=== PATIENT | male | born 1965 | race Caucasian/White ===

== ENCOUNTER 2019-06-10 10:26 | Observation (INO) ==
[2019-06-10] MEDS ORDERED: NS 1,000 ML IV PRN (11:07)
[2019-06-10 11:27] LABS: BASO# 0.02 X1000 (0.0-0.2); BASO% 0.3 % (0.0-0.8); EOS% 7.3 % (0.0-10.0); HEMATOCRIT 45.7 % (42.0-52.0); HEMOGLOBIN 16.1 g/dL (14.0-18.0); IMM GRAN# 0.02 X1000 (0.0-0.04); IMM GRAN% 0.3 % (0.0-0.5); LYMPH# 2.48 X1000 (1.2-3.4); LYMPH% 36.4 % (20.5-51.1); MCH 29.3 PG (27-31); MCHC 35.2 g/dL (33-37); MCV 83.1 FL (81-99); MONO# 0.52 X1000 (0.11-0.59); MONO% 7.6 % (1.7-9.3); MPV 11.9 FL (7.4-10.4); NEUT# 3.28 X1000 (1.4-6.5); NEUT% 48.1 % (42.2-75.2); PLT 141 X1000 (130-400); RDW 13.1 % (11.5-14.5); WBC 6.82 X1000 (4.8-10.8)
--- NOTE | 2019-06-10 11:29 | Diag Imaging Result Doc PS360 ---
EXAM: CT HEAD W/O CONTRAST HISTORY: right arm clumpsy TECHNIQUE: CT brain without contrast COMPARISON: None. FINDINGS: No parenchymal hemorrhage. No epidural or subdural hematoma. No subarachnoid hemorrhage. No mass identified on this noncontrasted exam. No hydrocephalus. There is a hypodense area posteriorly in the left temporal occipital region. It is difficult to tell if this is encephalomalacia from a small old infarct or if this is a congenital variant with atrophy. No sinus opacification. IMPRESSION: 1.No hemorrhage 2.Possible small old left infarct with encephalomalacia versus a congenital variant. This exam was performed using automated exposure control, adjustment of mA or kV according to patient size, and/or use of iterative reconstruction technique. Electronically signed by Jose Hopkins 06/10/2019 11:26 AM
--- NOTE | 2019-06-10 11:45 | EKG Report ---
Test Performed on : 06/10/2019 11:37:10 AM Test Reason : CVA symptoms Blood Pressure : / mmHG Vent. Rate : 048 BPM Atrial Rate : 048 BPM P-R Int : 140 ms QRS Dur : 106 ms QT Int : 452 ms P-R-T Axes : 028 019 059 degrees QTc Int : 403 ms Sinus bradycardia. Nonspecific T wave abnormality Abnormal ECG When compared with ECG of 25-DEC-2009 14:53, No significant change was found Unconfirmed Result
[2019-06-10 11:53] LABS: INR 0.92; PROTIME 12.8 Seconds (11.0-16.0)
[2019-06-10 11:54] LABS: PTT 26.6 Seconds (22.3-41.8)
[2019-06-10 11:56] LABS: ALBUMIN 4.2 g/dL (3.5-5.0); CALCIUM 8.9 mg/dL (8.8-10.2); CREATININE 1.3 mg/dL (0.7-1.2); POTASSIUM 4.9 mmol/L (3.5-5.1); TOTAL BILIRUBIN 1.1 mg/dL (0.20-1.00); TOTAL PROTEIN 6.9 g/dL (6.3-8.3)
--- NOTE | 2019-06-10 12:35 | PROVIDER DOCUMENTATION ---
This chart was entered by Augusto Graham Scribe, acting as scribe for Nadeen Johnson MD. HPI-General Adult - General Chief Complaint: Extremity Pain Stated Complaint: arm numbness Time Seen by Provider: 06/10/19 11:03 Source: patient Allergies/Adverse Reactions: Patient Allergies Allergy/AdvReac Type Severity Reaction Status Date / Time No Known Allergies Allergy Verified 06/10/19 11:01 Home Medications: Home Medication List Medication Instructions Recorded Confirmed Last Taken Type Amlodipine Besylate 5 mg PO DAILY 06/10/19 06/10/19 06/10/19 History Bisoprolol Fumarate/Hctz 1 ea PO DAILY 06/10/19 06/10/19 06/10/19 History [Bisoprolol-Hctz 5-6.25 mg Tab] Lisinopril 20 mg PO DAILY 06/10/19 06/10/19 06/10/19 History - History of Present Illness -Gen Adult Nature of Presenting Problems: 54 yowm presents to ed cc right arm numbness and weakness with health care coordinator onset am. symptoms have improved pt has hx of cva with depicts pt on exam has clear speech no facial droop and ambles at baseline pt is nontoxic at appearances and just felt that he needed to be checked out Location of Pain/Injury: reports: upper extremity (rue numbness and weakness) Pain Radiation: reports: no radiation Quality of Pain: reports: other (numbness and weakness) Severity: reports: mild Onset/Duration: reports: this morning Timing: reports: improving, intermittent Context/Activities at Onset: reports: light activity Modifying Factors: improves with: nothing Associated Symptoms: reports: weakness (rue), other (numbness). denies: back /neck pain, chest pain, diaphoresis, dizziness, headaches, shortness of breath Similar Symptoms Previously?: Yes (hx of cva but these sx are mild ) Recently seen or treated by another doctor?: No Review of Systems - Adult - REVIEW OF SYSTEMS - ADULT Constitutional: reports: no symptoms reported Eyes: reports: no symptoms reported Ears, Nose, Mouth & Throat: reports: no symptoms reported Cardiovascular: denies: chest pain, palpitations, syncope Respiratory: denies: cough, shortness of breath Gastrointestinal: denies: abdominal pain, diarrhea, nausea, vomiting Genitourinary: reports: no symptoms reported Musculoskeletal: reports: see HPI, muscle weakness (rue right) Integumentary: reports: no symptoms reported Neurological: reports: numbness (rue right). denies: dizziness/vertigo, headache/migraines, paresthesia, seizure, slurred speech, syncope, tremors Psychiatric: reports: no symptoms reported Endocrine: reports: no symptoms reported Hematologic/Lymphatic: reports: no symptoms reported Allergic/Immunologic: reports: no symptoms reported All Other Systems: Reviewed and Negative Past History - Adult - PAST MEDICAL HISTORY-ADULT Review of Records: reports: Old Records Reviewed, Nursing Assessment Review, Medications Reviewed, Social history reviewed & non-contributory. Major Childhood Illnesses: reports: denies history Cardiovascular: reports: HTN Respiratory: reports: denies history Gastrointestinal: reports: denies history Genitourinary: reports: denies history Musculoskeletal: reports: denies history Neurological: reports: CVA, stroke deficits (right sided) Endocrine/Immune: reports: denies history Other Conditions: reports: denies history - PRIOR SURGERIES/PROCEDURES Surgical/Procedure History: reports: reviewed, not pertinent - IMMUNIZATION STATUS Childhood Immunizations: See Nurse Assessment Flu Vaccine: See Nurse Assessment - FAMILY HISTORY Family History: reviewed, not pertinent - SOCIAL HISTORY Smoking: denies Substance Use: denies Living Situation: family Physical Exam-General - PHYSICAL EXAM-ADULT Initial Vital Signs Reviewed: Yes (marilee 50 bp 90/52) - CONSTITUTIONAL General Appearance: appears well, alert, no apparent distress - EYES Eyes: PERRL/EOMI, pink conjunctivae - HEAD, EARS, NOSE, MOUTH & THROAT HENMT: moist mucous membranes - NECK Neck: full range of motion, normal inspection - RESPIRATORY Respiratory: chest non-tender, lungs clear, normal breath sounds - CARDIOVASCULAR Cardiovascular: normal peripheral pulses, bradycardia (50) - GASTROINTESTINAL (ABDOMEN) Abdominal Exam: non tender, soft - GENITOURINARY Male Genitalia: deferred Rectal Exam: deferred Hemoccult Exam: deferred - MUSCULOSKELETAL Back Exam: normal inspection, no CVA tenderness, no vertebral tenderness Extremity: normal range of motion, normal inspection, no calf tenderness, normal capillary refill, other (rue numbness weakness mild on exam and improving) - SKIN Integumentary: normal color, normal turgor, warm/dry - NEUROLOGIC Neurologic: grossly normal, motor weakness (mild), sensory deficit (resolved) - PSYCHIATRIC Psych/Mental Status: normal mood/affect, normal thought content, normal thought process, oriented x 3 Progress - PLAN OF CARE/RESULTS Progress/Plan/Lab Results: Vital Signs - 8 hr 06/10/19 10:29 Temperature 98.3 F Pulse Rate 50 L Respiratory Rate 14 Blood Pressure 90/52 O2 Sat by Pulse Oximetry 99 Orders Category Date Time Status Cardiac Monitoring DIRECTED Care 06/10/19 11:07 Active Finger Stick Blood Sugar (ED) DIRECTED Care 06/10/19 11:07 Active Saline Loc NOW Care 06/10/19 11:[address] HEAD W/O CONTRAST [CT] Stat Exams 06/10/19 11:06 Ordered CBC WITH ELECTRONIC DIFF [HEME] Stat Lab 06/10/19 11:07 Ordered COMPREHENSIVE METABOLIC PANEL [CHEM] Stat Lab 06/10/19 11:07 Uncollected PROTIME WITH INR [COAG] Stat Lab 06/10/19 11:07 Uncollected PTT [COAG] Stat Lab 06/10/19 11:07 Uncollected TROPONIN T Stat Lab 06/10/19 11:07 Ordered URINE DRUG SCREEN PL Stat Lab 06/10/19 11:07 Uncollected VITAMIN B12 Stat Lab 06/10/19 11:07 Uncollected 0.9% Sodium Chloride Inj [Ns] 1,000 ml Med 06/10/19 11:07 Ordered IV 500 mls/hr EKG [EKG] Stat Ther 06/10/19 11:07 Ordered Result Diagrams: 06/10/19 11:15 06/10/19 11:15 - REASSESSMENT Reassessment #1 Time Reassessed: 12:13 (pt is resting in bed) Status: unchanged - EKG 1 Time of EKG reading by physician:: 11:37 EKG Read and Signed by:: Nadeen Johnson EKG Interpretation (*Must complete 3 of following elements*): Abnormal Rate: 48 Rhythm: sinus marilee [place]: normal QRS: normal GA Interval: normal ST Wave: normal Comments: nonspecific t wave abnormality - CT/MRI 1 CT Study: Head Impression: See EMR Report (EXAM: CT HEAD W/O CONTRAST HISTORY: right arm clumpsy TECHNIQUE: CT brain without contrast COMPARISON: None. FINDINGS: No parenchymal hemorrhage. No epidural or subdural hematoma. No subarachnoid hemorrhage. No mass identified on this noncontrasted exam. No hydrocephalus. There is a hypodense area posteriorly in the left temporal occipital region. It is difficult to tell if this is encephalomalacia from a small old infarct or if this is a congenital variant with atrophy. No sinus opacification. IMPRESSION: 1.No hemorrhage 2.Possible small old left infarct with encephalomalacia versus a congenital variant. This exam was performed using automated exposure control, adjustment of mA or kV according to patient size, and/or use of iterative reconstruction technique. Electronically signed by Jose Hopkins 06/10/2019 11:26 AM 06/10/19 1126 Interpreting Physician: Jose Hopkins MD Dictated Date/Time: 06/10/19 1123 cc: Nadeen Johnson MD; Sierra Blanco MD) - CONSULTS/PCP/HOSPITALIST Notification #1 *Consult/PCP/Hospitalist*: hospitalist dr beal Time Discussed: 13:32 Consult Disposition: Will see in ED, Admit Departure - Departure Date of Disposition Decision: 06/10/19 Time of Disposition Decision: 12:35 DIAGNOSIS: Right arm weakness Disposition: ADMITTED INPATIENT 09 Certified Medical Emergency: Emergent Condition: Good Referrals and Follow-Ups: Sierra Blanco MD [Primary Care Provider] - - Critical Care Note This patient required my direct & personal management of CC.: No Attestation - Physician/ WILLIAM Attestation Patient care was provided by Advanced Practice Provider:: No The physician spent face to face time with patient:: Yes Advanced Practice Provider documentation review:: Supervising physician onsite and consulted in the evaluation and care of this patient. The physician did have a face to face encounter with the patient. This chart was documented by the indicated scribe, (Augusto Graham Scribe) and accurately reflects the services I performed and decisions made by me, Nadeen Johnson MD, as attested by the provider's signature.
[2019-06-10] MEDS ORDERED: ZOFRAN IV PRN (13:42)
[2019-06-10] MEDS ORDERED: TYLENOL PO PRN (13:42)
[2019-06-10] MEDS ORDERED: APRESOLINE IV PRN (13:42)
[2019-06-10 13:49] LABS: UR AMPHETAMINES QUAL NONE DETECTED (NONE DETECT); UR BARBITUATES QUAL NONE DETECTED (NONE DETECT); UR BENZODIAZEPIN QUAL NONE DETECTED (NONE DETECT); UR CANNABINOIDS QUAL NONE DETECTED (NONE DETECT); UR COCAINE QUAL NONE DETECTED (NONE DETECT); UR METHADONE QUAL NONE DETECTED (NONE DETECT); UR METHAMPHETAMINE QUAL NONE DETECTED (NONE DETECT); UR OPIATES QUAL NONE DETECTED (NONE DETECT); UR OXYCODONE QUAL NONE DETECTED (NONE DETECT); UR PCP QUAL NONE DETECTED (NONE DETECT); UR PROPOXYPHENE QUAL NONE DETECTED (NONE DETECT); UR TCA QUAL NONE DETECTED (NONE DETECT)
[2019-06-10] MEDS: PRINIVIL PO SCH (17:25)
--- NOTE | 2019-06-10 19:46 | HISTORY AND PHYSICAL ---
CHIEF COMPLAINT: Extremity pain. HISTORY OF PRESENT ILLNESS: The patient is a 54-year-old male who presented to the hospital, noting that his right arm has become weak and numb. 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 He notes that he does have a history of cerebrovascular accident. He denies any speech change, vision change. Denies any focalized weakness anywhere else. ALLERGIES: No drug allergies. MEDICATIONS: Amlodipine 5, bisoprolol 5.5/6.25 daily, lisinopril 20 daily. PAST MEDICAL HISTORY: History of stroke, hypertension. FAMILY HISTORY: Positive for hypertension. REVIEW OF SYSTEMS: The patient notes that he normally has no chronic weakness in his right upper extremity. He has had a stroke in the past, but all of his symptoms resolved. He denies any headaches, blurred vision or change in vision. Denies any focalized numbness, tingling or weakness in his extremities, other than the symptoms that began today. He denies any diarrhea, constipation, melena or hematochezia. Denies dysuria. No frequency or urgency. Denies skin rashes, weight loss or weight gain. SOCIAL HISTORY: The patient denies smoking, states that he takes his blood pressure medications. Usually it is elevated but not as high as it is today. Denies alcohol or other illicit substance use. PHYSICAL EXAMINATION: VITAL SIGNS: Reviewed. Temperature 98 degrees, pulse 50, respiratory 14. BP initially in the ER 90/52, but then elevated upon my arrival and was 180/102. Certainly expect that the initial blood pressure reading may have been inaccurate. HEENT: Normocephalic. NECK: Supple. CARDIOVASCULAR: Regular rate. No murmurs. CHEST: Clear, nonlabored. ABDOMEN: Soft, nondistended. EXTREMITIES: Moves all extremities, although he does have some focalized weakness and numbness in his right upper extremity. He has full use of his right lower extremity. NEUROLOGIC: He is awake, alert and oriented. Cranial nerves 2 through 12 grossly intact. LABORATORY DATA: CBC and CMP normal. DIAGNOSTIC DATA: CT of the head negative. ASSESSMENT: 1. Acute transient ischemic attack with right-sided weakness. 2. Hypertension. PLAN: We will continue the patient in the hospital. We will continue to follow his symptoms. Check carotid, echocardiogram. We will check cholesterol medication in the morning. We will allow permissive hypertension, place him on oxygen. Further orders as needed. cc: Nicola Crowe MD
--- NOTE | 2019-06-10 21:01 | Extremity Venous Study ---
EXAM: Carotid Ultrasound INDICATION: cva TECHNIQUE: COMPARISON: None. FINDINGS: Right: There is trace atherosclerotic plaque at the right carotid bulb. The peak systolic velocity measures 79, 74, 56, 53, 68, 75, and 68 cm/s at the right subclavian artery, CCA, bifurcation, proximal ICA, mid ICA, distal ICA, and ECA, respectively. There is antegrade flow in the vertebral artery. The carotid ratio is 1.01. Left: There is no significant atherosclerotic disease involving the left carotid system on grayscale images. The peak systolic velocity measures 83, 65, 71, 47, 47, 68, and 73 cm/s at the left subclavian artery, CCA, bifurcation, proximal ICA, mid ICA, distal ICA, and ECA, respectively. There is antegrade flow in the vertebral artery. The carotid ratio is 1.05. IMPRESSION: Trace ethmoid plaque at the right carotid bulb. No evidence of hemodynamically significant stenosis by Doppler. Electronically signed by Jonh Quesada 06/10/2019 8:58 PM
[2019-06-11 05:20] VITALS: BP 126/81
[2019-06-11 05:28] LABS: HEMATOCRIT 44.3 % (42.0-52.0); HEMOGLOBIN 15.5 g/dL (14.0-18.0); MCH 29.1 PG (27-31); MCV 83.1 FL (81-99); RBC 5.33 XMIL (4.7-6.1); WBC 5.74 X1000 (4.8-10.8)
[2019-06-11 05:52] LABS: AGAP 9; ALBUMIN 3.4 g/dL (3.5-5.0); ALKALINE PHOSPHATASE 67 U/L (32-122); BUN 18 mg/dL (8-22); CALCIUM 8.1 mg/dL (8.8-10.2); CHLORIDE 108 mmol/L (98-107); CHOLESTEROL 158 mg/dL (0-200); COSMO 280; CREATININE 1.2 mg/dL (0.7-1.2); ESTIMATED GFR > 60; GLUCOSE 110 mg/dL (70-104); GOT 25 U/L (10-34); GPT 31 U/L (10-44); HDL 28 mg/dL (35-55); LDL 81 mg/dL; MAGNESIUM 1.9 mg/dL (1.5-2.7); POTASSIUM 4.3 mmol/L (3.5-5.1); SODIUM 139 mmol/L (136-145); TCO2 23 mmol/L (25-35); TRIGLYCERIDES 246 mg/dL (39-160); VLDL 49 mg/dL
[2019-06-11] MEDS: PRINIVIL PO SCH (08:36)
[2019-06-11] MEDS ORDERED: NORVASC PO SCH (09:00)
--- NOTE | 2019-06-11 13:48 | DISCHARGE SUMMARY ---
ADMISSION DATE: 06/10/2019 DISCHARGE DATE: 06/11/2019 DIAGNOSTIC DATA: Head CT: No hemorrhage. Possible small old left infarct with encephalomalacia versus congenital variant. Carotid Dopplers: Trace ethmoid plaque at the right carotid bulb but no evidence of hemodynamically significant stenosis by Doppler. DISCHARGE DIAGNOSIS: 1. Acute transient ischemic attack with right-sided weakness with CVA history. The patient's symptoms have improved. Today, he has been evaluated by physical therapy. Per their report, he has good strength, is independent with all functional mobility and required no further skilled physical therapy intervention recommended. He will be discharged home today on full- dose aspirin, Lipitor. 2. Hypertension. Continue home medication. HOSPITAL COURSE: Briefly, Mr. Andujar is a 54-year-old gentleman, who presented to the hospital noting that his right arm had became weak and numb. 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 Onset started sometime earlier in the morning on 06/10/2019. He did note that he has a history of CVA. Denied any change in his speech or vision or any other focalized weakness elsewhere. Head CT did in fact show an old stroke but nothing acute. His carotid Dopplers did not show any hemodynamic significance. He was evaluated by physical therapy today. He has returned back to his baseline and they do not recommend any further treatment or evaluation. He will be discharged back home today on a full-dose aspirin and a statin to follow up with primary care provider. VITAL SIGNS AT THE TIME OF DISCHARGE: Temperature is 97.5, heart rate 64, respiratory rate 16, blood pressure 126/81, O2 is 98% on room air. DISCHARGE DIET: Healthy heart. DISCHARGE MEDICATIONS: 1. Amlodipine 5 mg p.o. daily. 2. Bisoprolol-HCTZ 5-6.25 mg 1 each p.o. daily. 3. Lisinopril 20 mg p.o. daily. 4. Lipitor 40 mg p.o. at bedtime. 5. Aspirin 325 mg p.o. daily. FOLLOWUP: Mr. Andujar is being discharged back home with self-care. He is to follow up with his primary care provider, Dr. Sierra Blanco in the next 7-10 days. He can return to the ED or call 911 for any worsening of symptoms. Dictated by MARI Ortega for Nicola Crowe MD cc: MD Sierra Hall MD MTDD
[2019-06-11] MEDS ORDERED: LIPITOR PO SCH (21:00)
--- NOTE | 2019-06-12 10:23 | DISCHARGE SUMMARY ---
ADMISSION DATE: 06/10/2019 DISCHARGE DATE: 06/11/2019 ADDENDUM: Patient seen and examined by myself. Full note dictated and discussed with nurse practitioner. The patient does have high cholesterol with an LDL of 158, triglycerides at 244. He has had a previous stroke, and certainly has had a recurrent stroke with right-sided weakness. We admitted him to the hospital with hypertension. Blood pressures are improved, currently 126/81 on discharge. Discussed with him that he needs to take cholesterol medication as well as an aspirin. He will follow up outpatient with primary care of his choice. Please see full note. cc: Nicola Crowe MD
== END 2019-06-11 11:13 | disposition home or self-care (01) ==
LOC: P.MEDSURG 10:26 → P.ED 10:26
PROVIDERS: ATTEND Family Medicine